=== PATIENT | female | born 1980 | race Caucasian/White ===

== ENCOUNTER 2016-05-27 17:19 | Emergency (ER) | payer BC ==
--- NOTE | 2016-05-27 18:58 | ED CLINICAL REPORT ---
Clinical Report - Physicians/Mid Levels [facility] [address] [place] [address] 05/27/2016 17:21 [id number] Ar[facility]- By private vehicle. Historian- patient. HISTORY OF PRESENT ILLNESS Treated in emergency department six days ago. Chief Complaint: RECHECK and incision. The patient has experienced since the procedure was performed (separation. Dhruv removed only 2days postop). REVIEW OF SYSTEMS No fever or difficulty breathing. PAST HISTORY See nurses notes. C section 6d ago. No history of hypertension or diabetes mellitus. Surgeries: . Medications: [place] Oral. Zofran Oral (Tablet 4 mg) 1 tablet, PRN. Iron Oral. Stool Softener Oral. Allergies: No Known Drug Allergy. SOCIAL HISTORY Never smoker. No alcohol use or drug use. ADDITIONAL NOTES The nursing notes have been reviewed. PHYSICAL EXAM Vital Signs: 05/27/2016 17:28 BP: 167/87. HR: 78. RR: 16. O2 saturation: 100%. Temp: 98.1 F. Pain level now: 0/10. Have been reviewed and appear to be correct. Appearance: Alert. Oriented X3. No acute distress. Head: Head non-tender. Eyes: Pupils equal, round and reactive to light. Neck: Neck non-tender. Respiratory: Breath sounds normal. Skin: No infection. Slight wound dehiscence (right edge 3cm, <.2cm gape). Extremities: Normal inspection. Neuro, Vascular and Tendons: Sensation intact. Neuro: Oriented X 3. PROGRESS AND PROCEDURES Course of Care: Only separation of superficial skin. Benzoin tincture applied; steri-stripped thoroughly. Patient is stable. Patient counseled in person regarding the patient's diagnosis, need for follow-up and wound care. Disposition: Discharged. Condition: stable. CLINICAL IMPRESSION Post-operative complication- partial wound dehiscence. INSTRUCTIONS (Leave steri-strips on til fall off (reapplied). No sign of infection). Follow-up: Follow up with your doctor as scheduled. Understanding of the discharge instructions verbalized by patient. (Electronically signed by Ratna Phan A.R.N.P. 05/27/2016 22:22)
--- NOTE | 2016-05-27 18:58 | ED CLINICAL REPORT ---
Clinical Report - Physicians/Mid Levels [facility] [address] [place] [address] 05/27/2016 17:21 [id number] Ar[facility]- By private vehicle. Historian- patient. HISTORY OF PRESENT ILLNESS Treated in emergency department six days ago. Chief Complaint: RECHECK and incision. The patient has experienced since the procedure was performed (separation. Dhruv removed only 2days postop). REVIEW OF SYSTEMS No fever or difficulty breathing. PAST HISTORY See nurses notes. C section 6d ago. No history of hypertension or diabetes mellitus. Surgeries: . Medications: [place] Oral. Zofran Oral (Tablet 4 mg) 1 tablet, PRN. Iron Oral. Stool Softener Oral. Allergies: No Known Drug Allergy. SOCIAL HISTORY Never smoker. No alcohol use or drug use. ADDITIONAL NOTES The nursing notes have been reviewed. PHYSICAL EXAM Vital Signs: 05/27/2016 17:28 BP: 167/87. HR: 78. RR: 16. O2 saturation: 100%. Temp: 98.1 F. Pain level now: 0/10. Have been reviewed and appear to be correct. Appearance: Alert. Oriented X3. No acute distress. Head: Head non-tender. Eyes: Pupils equal, round and reactive to light. Neck: Neck non-tender. Respiratory: Breath sounds normal. Skin: No infection. Slight wound dehiscence (right edge 3cm, <.2cm gape). Extremities: Normal inspection. Neuro, Vascular and Tendons: Sensation intact. Neuro: Oriented X 3. PROGRESS AND PROCEDURES Course of Care: Only separation of superficial skin. Benzoin tincture applied; steri-stripped thoroughly. Patient is stable. Patient counseled in person regarding the patient's diagnosis, need for follow-up and wound care. Disposition: Discharged. Condition: stable. CLINICAL IMPRESSION Post-operative complication- partial wound dehiscence. INSTRUCTIONS (Leave steri-strips on til fall off (reapplied). No sign of infection). Follow-up: Follow up with your doctor as scheduled. Understanding of the discharge instructions verbalized by patient. (Electronically signed by Ratna Phan A.R.N.P. 05/27/2016 22:22)
--- NOTE | 2016-05-27 18:59 | ED NURSING NOTES ---
Clinical Report - Nurses [facility] [address] [place] [address] 05/27/2016 17:21 [id number] TRI[facility] Triage time 17:May 27 2016. Acuity: LEVEL 5. Chief Complaint: (Patient had Csection on Sunday05/21/16, kellie removed on 05/24/16, steristrips have fallen off at lower abd, 3 cm open with scant blood). 17:40 05/27/16. SEPSIS SCREEN: Sepsis Screen. Negative (no infection suspected/documented). THANIA COMA SCORE: [place] Coma Scale: 15- eyes open spontaneously (4); best verbal response- oriented x 4 (5); best motor response- obeys commands (6). --17:40 Suki King R.N. 17:28 05/27/16. BP: 167/87 (regular adult cuff) taken on the left arm, while lying. HR: 78. RR: 16 (regular). O2 saturation: 100% on room air. Temp: 98.1 F (oral). Pain level now: 0/10. --17:40 Suki King R.N. Weight: 57.1 kg stated. Height/Length: 60 inches Per Patient. BMI: 24.6. --17:37 Suki King R.N. Medications Stool Softener Oral. --17:33 Suki King R.N. Iron Oral. --17:33 Suki King R.N. Zofran Oral (Tablet 4 mg) 1 tablet, PRN. --17:34 Suki King R.N. T[place] Oral. --17:36 Suki King R.N. Allergies No Known Drug Allergy. --17:34 Suki King R.N. History Arrived by private vehicle. Historian: patient. Accompanied by family. Primary physician (OSMAN STEEN). This started yesterday. Treatment UNIT TRUST MANAGER: None. PAST MEDICAL HX: Immunizations: up-to-date. SOCIAL HX: Never smoker. No alcohol use or drug use. ABUSE ASSESSMENT: No report of abuse. --17:40 Suki King R.N. PROBLEMS: Heart Murmur. Rheumatoid Arthritis. GERD. Anemia. --17:36 Suki King R.N. ADDITIONAL SURGERIES: Cesarian Section. Endoscopy. Tooth extraction. --17:36 Suki King R.N. Interventions ID band on patient. To treatment room. --17:40 Suki King R.N. PHYSICAL ASSESSMENT 17:41 05/27/16. Ambulatory to room. GENERAL / NEURO / PSYCH: Oriented X 4. HEENT: Pupils equal, round and reactive to light. RESPIRATORY: Respirations not labored. CVS: Capillary refill less than 2 seconds. GI / : ( 3cm open wound at lower abd). Abdomen soft and nontender. SKIN: Skin is warm. --17:41 Suki King R.N. NURSING PROGRESS NOTES 17:41 05/27/16. Head of bed elevated. Reassurance given. Two patient identifiers checked. Call light placed in reach. Side rails up x 1. Bed placed in lowest position. Brakes of bed on. Patient ready for evaluation- chart flagged and ED physician notified. --17:41 Suki King R.N. 18:40. 1/4" steri-strips applied to wound on abdomen (by EDRN). --18:49 Keyona Martinez R.N. 18:45. Applied clean dressing (non-stick telfa pads 3x10 inch x 2 , secured with 3inch white gauze tape). --22:21 Keyona Martinez R.N. DISPOSITION / DISCHARGE 1850. Condition at departure: improved and stable. No learning barriers present. Discharge instructions provided and reviewed with the patient and family. Reviewed medication(s) (continue home meds). Patient and panama hat blocker verbalized understanding. Written instructions provided in Setswana. The patient was discharged home and accompanied by family. She left the Emergency Department ambulatory and via private vehicle. Driving (sister). --22:23 Keyona Martinez R.N. 18:40 05/27/16. BP: 152/80. HR: 76. RR: 18. O2 saturation: 100%. Temp: deferred. Pain level now: 0/10. --22:23 Keyona Martinez R.N. Locked/Released at 05/27/2016 22:25 by Keyona Martinez R.N.
--- NOTE | 2016-05-27 18:59 | ED ORDER SUMMARY ---
..... Patient: BROWN NAJERA OrderSheet [facility] VisitID: [id number] [address] [place] [address] 35y, F Registration Date/Time: 05/27/2016 ORDER SHEET Weight: 57.1 kg (stated) Allergies: No Known Drug Allergy GENERAL ORDERS: Dress Wounds (18:11 05/27/2016 Rodney Dutton.R.N.P.) (18:49 Ana Augustine) MEDICATION ORDERS: IV FLUIDS: ORDER SHEET NOTES: [Electronically signed by Ratna PhanN.PJorge (22:22 05/27/2016)] [Electronically signed by Keyona Martinez R.N. (22:25 05/27/2016)] [Electronically locked/signed by Keyona Martinez R.N. (22:05/27/2016)]
--- NOTE | 2016-05-27 18:59 | ED ORDER SUMMARY ---
..... Patient: BROWN NAJERA OrderSheet [facility] VisitID: [id number] [address] [place] [address] 35y, F Registration Date/Time: 05/27/2016 ORDER SHEET Weight: 57.1 kg (stated) Allergies: No Known Drug Allergy GENERAL ORDERS: Dress Wounds (18:11 05/27/2016 Rodney Dutton.R.N.P.) (18:49 Ana Augustine) MEDICATION ORDERS: IV FLUIDS: ORDER SHEET NOTES: [Electronically signed by Ratna PhanN.PJorge (22:22 05/27/2016)] [Electronically signed by Keyona Martinez R.N. (22:25 05/27/2016)] [Electronically locked/signed by Keyona Martinez R.N. (22:05/27/2016)]
--- NOTE | 2016-05-27 18:59 | ED NURSING NOTES ---
Clinical Report - Nurses [facility] [address] [place] [address] 05/27/2016 17:21 [id number] Triage time 17:May 27 2016. Acuity: LEVEL 5. Chief Complaint: (Patient had Csection on Sunday05/21/16, kellie removed on 05/24/16, steristrips have fallen off at lower abd, 3 cm open with scant blood). 17:40 05/27/16. SEPSIS SCREEN: Sepsis Screen. Negative (no infection suspected/documented). THANIA COMA SCORE: [place] Coma Scale: 15- eyes open spontaneously (4); best verbal response- oriented x 4 (5); best motor response- obeys commands (6). --17:40 Suki King R.N. 17:28 05/27/16. BP: 167/87 (regular adult cuff) taken on the left arm, while lying. HR: 78. RR: 16 (regular). O2 saturation: 100% on room air. Temp: 98.1 F (oral). Pain level now: 0/10. --17:40 Suki King R.N. Weight: 57.1 kg stated. Height/Length: 60 inches Per Patient. BMI: 24.6. --17:37 Suki King R.N. Medications Stool Softener Oral. --17:33 Suki King R.N. Iron Oral. --17:33 Suki King R.N. Zofran Oral (Tablet 4 mg) 1 tablet, PRN. --17:34 Suki King R.N. [place] Oral. --17:36 Suki King R.N. Allergies No Known Drug Allergy. --17:34 Suki King R.N. History Arrived by private vehicle. Historian: patient. Accompanied by family. Primary physician (OSMAN STEEN). This started yesterday. Treatment SWIMMING POOL MAINTENANCE: None. PAST MEDICAL HX: Immunizations: up-to-date. SOCIAL HX: Never smoker. No alcohol use or drug use. ABUSE ASSESSMENT: No report of abuse. --17:40 Suki King R.N. PROBLEMS: Heart Murmur. Rheumatoid Arthritis. GERD. Anemia. --17:36 Suki King R.N. ADDITIONAL SURGERIES: Cesarian Section. Endoscopy. Tooth extraction. --17:36 Suki King R.N. Interventions ID band on patient. To treatment room. --17:40 Suki King R.N. PHYSICAL ASSESSMENT 17:41 05/27/16. Ambulatory to room. GENERAL / NEURO / PSYCH: Oriented X 4. HEENT: Pupils equal, round and reactive to light. RESPIRATORY: Respirations not labored. CVS: Capillary refill less than 2 seconds. GI / : ( 3cm open wound at lower abd). Abdomen soft and nontender. SKIN: Skin is warm. --17:41 Suki King R.N. NURSING PROGRESS NOTES 17:41 05/27/16. Head of bed elevated. Reassurance given. Two patient identifiers checked. Call light placed in reach. Side rails up x 1. Bed placed in lowest position. Brakes of bed on. Patient ready for evaluation- chart flagged and ED physician notified. --17:41 Suki King R.N. 18:40. 1/4" steri-strips applied to wound on abdomen (by EDRN). --18:49 Keyona Martinez R.N. 18:45. Applied clean dressing (non-stick telfa pads 3x10 inch x 2 , secured with 3inch white gauze tape). --22:21 Keyona Martinez R.N. DISPOSITION / DISCHARGE 1850. Condition at departure: improved and stable. No learning barriers present. Discharge instructions provided and reviewed with the patient and family. Reviewed medication(s) (continue home meds). Patient and linotype machinist verbalized understanding. Written instructions provided in Tam[place]ight. The patient was discharged home and accompanied by family. She left the Emergency Department ambulatory and via private vehicle. Driving (sister). --22:23 Keyona Martinez R.N. 18:40 05/27/16. BP: 152/80. HR: 76. RR: 18. O2 saturation: 100%. Temp: deferred. Pain level now: 0/10. --22:23 Keyona Martinez R.N. Locked/Released at 05/27/2016 22:25 by Keyona Martinez R.N.
--- NOTE | 2016-05-27 22:25 | ED MAR SUMMARY ---
..... Medication Administration Record [facility] [address] [place], [place] [id number] Patient: BROWN NAJERA Visit ID: [id number] 35y, F Weight: 57.1 kg Height/Length: 60 in BMI: 24.6 ALLERGIES: No Known Drug Allergy
--- NOTE | 2016-05-27 22:25 | ED MED RECONCILIATION SUMMARY ---
Patient: BROWN NAJERA Medication Reconciliation Report [facility] VisitID: [id number] [address] [place] [address] 35y, F Registration Date/Time: 05/27/2016 Weight: 57.1 kg Height/Length: 60 in. BMI: 24.6 ALLERGIES: No Known Drug Allergy The patient's Home Medications are listed below: THE FOLLOWING MEDICATIONS NEED TO BE RECONCILED: Iron Oral [place] Oral Stool Softener Oral Zofran Oral (4 mg) 1 tablet, PRN The source(s) of the original Home Medication information: Not obtained. The following Medications were given to the patient in the Emergency Department: None. The following Medications were prescribed to the patient: None.
--- NOTE | 2016-05-27 22:25 | ED DISCHARGE INSTRUCTIONS ---
Patient: BROWN NAJERA General Instructions [facility] VisitID: [id number] [address] [place] [address] 35y, F Registration Date/Time: 05/27/2016 Post-operative complication- partial wound dehiscence. INSTRUCTIONS (Leave steri-strips on til fall off (reapplied). No sign of infection). Follow-up: Follow up with your doctor as scheduled. Understanding of the discharge instructions verbalized by patient. (Electronically signed by Ratna Phan A.R.N.P. 05/27/2016 22:22)
--- NOTE | 2016-05-27 22:25 | ED MAR SUMMARY ---
..... Medication Administration Record [facility] [address], [place] [id number] Patient: BROWN NAJERA Visit ID: [id number] 35y, F Weight: 57.1 kg Height/Length: 60 in BMI: 24.6 ALLERGIES: No Known Drug Allergy
--- NOTE | 2016-05-27 22:25 | ED MED RECONCILIATION SUMMARY ---
Patient: BROWN NAJERA Medication Reconciliation Report [facility] VisitID: [id number] [address] [place] [address] 35y, F Registration Date/Time: 05/27/2016 Weight: 57.1 kg Height/Length: 60 in. BMI: 24.6 ALLERGIES: No Known Drug Allergy The patient's Home Medications are listed below: THE FOLLOWING MEDICATIONS NEED TO BE RECONCILED: Iron Oral [place] Oral Stool Softener Oral Zofran Oral (4 mg) 1 tablet, PRN The source(s) of the original Home Medication information: Not obtained. The following Medications were given to the patient in the Emergency Department: None. The following Medications were prescribed to the patient: None.
--- NOTE | 2016-05-27 22:25 | ED DISCHARGE INSTRUCTIONS ---
Patient: BROWN NAJERA General Instructions [facility] VisitID: [id number] [address] [place] [place] [address] 35y, F Registration Date/Time: 05/27/2016 Post-operative complication- partial wound dehiscence. INSTRUCTIONS (Leave steri-strips on til fall off (reapplied). No sign of infection). Follow-up: Follow up with your doctor as scheduled. Understanding of the discharge instructions verbalized by patient. (Electronically signed by Ratna Phan A.R.N.P. 05/27/2016 22:22)
== END 2016-05-27 18:50 | disposition home or self-care (01) ==
LOC: ED SRH 17:19
DX: O90.0 Disruption of cesarean delivery wound (principal); Z79.891 Long term (current) use of opiate analgesic; Z79.899 Other long term (current) drug therapy